=== PATIENT | male | born 1980 | race African-American/Black ===

== ENCOUNTER 2023-08-28 10:05 | Outpatient (OUT) | payer MEDICAID, SELFPAY ==
--- NOTE | 2023-08-28 10:23 | XR_ITS ---
The [address] [address] Patient Name: DORA HIGH MRN: [id number] date: 1980 Sex: M Assigned Patient Location: [facility] Current Patient Location: [facility] Accession/Order Number: [id number] Exam Date: 08/28/2023 10:32 Report Date: 08/28/2023 10:49 At the request of: ARI KELLER Procedure: XR mandible min 4V EXAM: XR mandible min 4V HISTORY: Z18.10 Retained metal fragments COMPARISON: None TECHNIQUE: 4 views of the mandible were obtained. FINDINGS: Stabilizing plate and screws at the level of the right mandibular ramus and angle. The most proximal stabilizing plate is fractured just distal to the second stabilizing screw at this level, correlate clinically. Stabilizing plate and screws at the mentum of the mandible. No obvious acute bony fracture or dislocation. Mandibular condylar regions appear grossly unremarkable. No obvious opaque foreign body aside from the stabilizing devices. No significant soft tissue swelling. XR/XR mandible min 4V IMPRESSION: Mandible study demonstrates stabilizing plates and screws as described, fractured stabilizing plate as described above, of no certain acute significance. Correlate clinically. No other obvious opaque foreign body identified. Follow-up as needed. Electronically authenticated by: JOANNA FISCHER Date: 08/28/2023 10:49
== END 2023-08-28 10:06 | disposition home or self-care (01) ==
LOC: RAD 10:13
PROVIDERS: Visit Provider Physician Assistant Medical
DX: R51.9 Headache, unspecified (principal); Z18.10 Retained metal fragments, unspecified; G40.409 Other generalized epilepsy and epileptic syndromes, not intractable, without status epilepticus
CPT/HCPCS: 70110

== ENCOUNTER 2023-09-17 09:50 | Outpatient (OUT) | payer MEDICAID, SELFPAY ==
--- NOTE | 2023-09-17 09:54 | CT_ITS ---
The [address] [address] Patient Name: DORA HIGH MRN: [id number] date: 1980 Sex: M Assigned Patient Location: CT Current Patient Location: CT Accession/Order Number: [id number] Exam Date: 09/17/2023 10:00 Report Date: 09/17/2023 10:25 At the request of: BARRIE QUINONEZ Procedure: CT head/brain wo con EXAM: CT head/brain wo con HISTORY: seizure disorder G40.909, Headache R51.9 COMPARISON: None. TECHNIQUE: Axial CT images were obtained of the head without intravenous contrast. Multiplanar reconstructions were performed. FINDINGS: No acute intracranial hemorrhage. No acute loss of tobin/white differentiation. The ventricles and sulci are normal in appearance. The osseous structures are unremarkable. No soft tissue abnormality identified. There is mild mucosal thickening in the ethmoid air cells. CT/CT head/brain wo con IMPRESSION: 1. No acute intracranial abnormality. 2. Mild chronic sinusitis. Electronically authenticated by: JERONIMO AZUL Date: 09/17/2023 10:25
== END 2023-09-17 09:51 | disposition home or self-care (01) ==
LOC: CT 09:50
PROVIDERS: Visit Provider Psychiatry & Neurology Neurology
DX: G40.909 Epilepsy, unspecified, not intractable, without status epilepticus (principal); R51.9 Headache, unspecified
CPT/HCPCS: 70450

== ENCOUNTER 2023-12-21 14:21 | Outpatient (OUT) | payer MEDICAID, SELFPAY ==
--- NOTE | 2023-12-21 16:21 | P.CN_ITS ---
Consult Note: HPI Data of Consult Patient: new to practice Consult date: 12/21/23 Requesting Physician: Gaby Huerta MD Primary Care Provider: Non-Staff Physician, Consult Narrative Reason for consult: right foot and ankle pain Narrative: 43yom who presents for evaluation. worsening right foot and ankle pain after injury last year. underwent orif, but has persistent burning, swelling, color change, temperature change, sensitivity in right foot. can barely put socks or shoes on. uses gabapentin, but does not provide significant relief. imaging does not show any acute pathology. cc:: CC: Gaby Huerta MD Review of Systems ROS Status of ROS 10 or more systems reviewed and unremark able except as noted in history and below Exam Narrative Exam Narrative: Psych-alert and oriented x 3.? Attentive and appropriate, constitutionally normal, displays normal mood and affect per situation.? There are no obvious deficits in memory, reasoning, or intellect. Examination of the right lower extremity extremity reveals notable hyperpathia and allodynia.? Notable atrophy and diffuse weakness present in the extremity.? There is notable shiny skin with hair loss and abnormal hair growth denoting trophic changes presently.? Asymmetric color and temperature changes are present which denotes sudomotor changes.? Decreased range of motion and strength is noted in the extremity.? Coordination remains intact.? Gait remains antalgic Assessment and Plan Assessment and Plan (1) Complex regional pain syndrome i of right lower limb: Plan 43yom who presents for evaluation. failed conservative measures, including pt and home exercises >6 weeks. given symptoms and injury history, prudent to attempt right lumbar sympathetic nerve block x2 with ivcs. he is in agreement. meds reviewed. will discontinue gabapentin and trial lyrica 200mg tid. uds obtained. follow up after procedure.
== END 2023-12-21 14:22 | disposition home or self-care (01) ==
LOC: PM 14:22
PROVIDERS: Visit Provider Anesthesiology
DX: G90.521 Complex regional pain syndrome I of right lower limb (principal)
CPT/HCPCS: G0463

== ENCOUNTER 2024-01-04 06:16 | Day surgery (SDC) | payer MEDICAID, SELFPAY ==
--- OUTSIDE RECORDS SUMMARY | 2024-01-04 06:19 | XMS_ITS | CCD ---
Author Organization [facility] Care Team Providers Care Technical Expert Name Role Phone HODAN Lind Attending Provider NO FAMILY, PHYSICIAN Primary Care Unavailable Maico Lind Attending Unavailable Maico Lind Admitting Unavailable Mason ICING MAKER-INSIDE TECHNICAL SALES REPRESENTATIVE, Caio Primary Care Provider JAY JAY CROWE Referring Unavailable MASON, CAIO Primary Care Unavailable JAY JAY CROWE Attending Unavailable MASON, CAIO Referring Unavailable MASON, CAIO Primary Care Unavailable MASON, CAIO Attending Unavailable MASON, CAIO Referring Unavailable MASON, CAIO Primary Care Unavailable MASON, CAIO Referring Unavailable MASON, CAIO Primary Care Unavailable MASON, CAIO Primary Care Unavailable CHERYL PEREZ Attending Unavailable MASON, CAIO Primary Care Unavailable KATLYN LEZAMA Attending Unavailable KATLYN LEZAMA Referring Unavailable MASON, CAIO Primary Care Unavailable Gaby Huerta MD Attending Unavailable MANSI LEE Attending Unavailable Allergies Allergy Classification Reported Allergen(s) Allergy Type Date of Onset Reaction(s) Facility (5 sources) 1-octacosanol; Translations: [OCTACOSANOL] Drug Allergy 03-18-2023 [facility] (5 sources) house dust allergenic extract; Translations: [HOUSE DUST] Drug Allergy 04-05-2023 [facility] Medications Current Medications Medication Drug Class(es) Dates Sig (Normalized) Sig (Original) acetaminophen 500 mg oral tablet (2 sources) Start: 05-19-2023 take 2 tablets by mouth every eight hours acetaminophen (TYLENOL EXTRA STRENGTH) 500 mg tablet Indications: Closed displaced trimalleolar fracture of right ankle, sequela Take 2 tablets (1,000 mg total) by mouth every 8 (eight) hours. 90 tablet 1 05/19/2023 Active acetaminophen 325 mg / oxyCODONE hydrochloride 10 mg oral tablet (3 sources) Opioid Agonist Start: 11-23-2023 End: 12-07-2023 oxyCODONE-acetamino phen (PERCOCET) 10-325 mg per tablet Indications: Viral syndrome Take 1 tablet by mouth every 6 (six) hours as needed for pain for up to 14 days. Max Daily Amount: 4 tablets 56 tablet 0 11/23/2023 12/07/2023 Active Start: 11-14-2023 End: 11-23-2023 oxyCODONE-acetaminophen (PER COCET) 10-325 mg per tablet Indications: Viral syndrome Take 1 tablet by mouth every 4 (four) hours as needed for pain for up to 6 doses. Max Daily Amount: 6 tablets 6 tablet 0 11/14/2023 11/23/2023 Discontinued (Reorder) Start: 07-01-2023 oxyCODONE-acet aminophen (PERCOCET) 5-325 mg per tablet amLODIPine 10 mg oral tablet (3 sources) Dihydropyridine Calcium Channel Brooks Start: 11-23-2023 take 1 tablet by mouth in the morning amLODIPine (NORVASC) 10 mg tablet Take 1 tablet (10 mg total) by mouth in the morning. 30 tablet 2 11/23/2023 Active Start: 07-03-2023 End: 11-23-2023 amLODIPine (NORVASC) 5 mg ta blet aspirin 81 mg delayed release oral tablet (3 sources) Platelet Aggregation Inhibitor, Nonsteroidal Anti-inflammatory Drug Start: 05-19-2023 End: 11-23-2023 take 1 tablet by mouth in the morning, then take 1 tablet by mouth at bedtime aspirin 81 mg Indications: Closed displaced trimalleolar fracture of right ankle, sequela Take 1 tablet (81 mg total) by mouth in the morning and 1 tablet (81 mg total) before bedtime. 60 tablet 0 11/23/2023 Active bisacodyl 10 mg rectal suppository (1 source) Stimulant Laxative bisacodyL (DULCOLAX, BISACODYL,) 10 mg suppository Insert 1 suppository (10 mg total) into the rectum in the morning. 0 Active blood pressure monitor (BLOOD PRESSURE KIT) kit (1 source) Start: 11-23-2023 blood pressure monitor (BLOOD PRESSURE KIT) kit Indications: Primary hypertension 1 Device by miscellaneous route in the morning. 1 each 0 11/23/2023 Active calcium carbonate 500 mg chewable tablet (1 source) calcium carbonat e (TUMS) 200 mg elemental (500 mg) chewable tablet Chew 1 tablet (200 mg total) and swallow in the morning. 0 Active calcium-minerals- [id number] 200 mg calcium- 200 unit tablet (3 sources) Start: 11-23-2023 take 1 tablet by mouth in the morning [id number]-[id number]-Y 5-R0-gkpyozg 200 mg calcium- 200 unit tablet Take 1 tablet by mouth in the morning and 1 tablet before bedtime. 60 tablet 1 11/23/2023 Active End: 11-23-2023 kycvgrz-prohhlsf-P9-K2-silic on 200 mg calcium- 200 unit tablet Take by mouth. 0 11/23/2023 Discontinued (Reorder) calcium-minerals -E3-X1-iebwnbg 200 mg calcium- 200 unit tablet Take by mouth. 0 Active docusate sodium 100 mg oral capsule (1 source) Start: 11-23-2023 take 1 capsule by mouth in the morning, then take 1 capsule by mouth at bedtime docusate sodium (COLACE) 100 mg capsule Take 1 capsule (100 mg total) by mouth in the morning and 1 capsule (100 mg total) before bedtime. 60 capsule 2 11/23/2023 Active DULoxetine 60 mg delayed release oral capsule (2 sources) Serotonin and Norepinephrine Reuptake Inhibitor Start: 11-23-2023 take 1 capsule by mouth once daily at bedtime DULoxetine (CYMBALTA) 60 mg capsule Take 1 capsule (60 mg total) by mouth once daily at bedtime. 30 capsule 2 11/23/2023 Active Start: 10-03-2023 End: 11-23-2023 DULoxetine (CYMBALTA) 30 mg capsule ergocalciferol 1.25 mg oral capsule (3 sources) Provitamin D2 Compound Start: 11-23-2023 End: 01-12-2024 take 1 capsule by mouth every week VITAMIN D2 1,250 mcg (50,000 unit) capsule Take 1 capsule (50,000 Units total) by mouth once a week for 8 doses. 8 capsule 0 11/23/2023 01/12/2024 Active Start: 08-02-2023 End: 11-23-2023 VITAMIN D2 1,250 mcg (50,000 unit) capsule famotidine 20 mg oral tablet (1 source) Histamine-2 Receptor Antagonist Start: 11-23-2023 take 1 tablet by mouth in the morning, then take 1 tablet by mouth at bedtime famotidine (PEPCID) 20 mg tablet Take 1 tablet (20 mg total) by mouth in the morning and 1 tablet (20 mg total) before bedtime. 60 tablet 2 11/23/2023 Active fluticasone propionate 0.05 mg/actuat metered dose nasal spray (2 sources) Corticosteroid Start: 07-14-2023 fluticasone propionate (FLONASE) 50 mcg/actuation nasal spray gabapentin 800 mg oral tablet (3 sources) Anti-epileptic Agent Start: 05-28-2023 End: 11-23-2023 take 1 tablet by mouth once daily gabapentin (NEURONTIN) 800 mg tablet Indications: Closed displaced trimalleolar fracture of right ankle, sequela , Bimalleolar ankle fracture, right, sequela , Uncontrolled pain Take 1 tablet (800 mg total) by mouth nightly. 30 tablet 0 11/23/2023 Active ibuprofen 800 mg oral tablet (3 sources) Nonsteroidal Anti-inflammatory Drug Start: 11-23-2023 take 1 tablet by mouth every eight hours as needed for pain ibuprofen (MOTRIN) 800 mg tablet Take 1 tablet (800 mg total) by mouth every 8 (eight) hours as needed for pain. 90 tablet 2 11/23/2023 Active End: 11-23-2023 take 1 tablet by mouth every six hours as needed for pain ibuprofen (MOTRIN) 800 mg tablet Take 1 tablet (800 mg total) by mouth every 6 (six) hours as needed for pain. 0 11/23/2023 Discontinued (Reorder) magnesium hydroxide 80 mg/ml oral suspension (1 source) take 30 mL by mouth in the morning magnesium hydroxide 400 mg/5 mL suspension Take 30 mL by mouth in the morning. 0 Active methocarbamol 500 mg oral tablet (3 sources) Muscle Relaxant Start: 3 End: 4 take 1 tablet by mouth three times daily as needed for muscle spasms methocarbamoL (ROBAXIN) 500 mg tablet Take 1 tablet (500 mg total) by mouth 3 (three) times a day as needed for muscle spasms. 90 tablet 0 11/23/2023 Active naloxone hydrochloride 40 mg/ml nasal spray (1 source) Opioid Antagonist Start: 4 naloxone (NARCAN) 4 mg/actuation spray,non-aerosol nasal spray Administer 1 spray (4 mg total) into alternating nostrils as needed for opioid reversal. 0 11/14/2023 Active omega 3-vfb-idj-fish oil (Fish OiL) 300-1,000 mg capsule (3 sources) Start: 4 take 1 tablet by mouth in the morning omega 1-zoe-lbz-fish oil (Fish OiL) 300-1,000 mg capsule Take 1 tablet by mouth in the morning and 1 tablet before bedtime. 60 each 2 11/23/2023 Active End: 11-23-2023 omega 9-pre-pwd-fish oil (Fi sh OiL) 300-1,000 mg capsule Take by mouth. 0 11/23/2023 Discontinued (Reorder) omega 3-dha-epa- fish oil (Fish OiL) 300-1,000 mg capsule Take by mouth. 0 Active ondansetron 4 mg disintegrating oral tablet (2 sources) Serotonin-3 Receptor Antagonist Start: 11-14-2023 End: 11-23-2023 take 1 tablet by mouth every eight hours as needed for nausea ondansetron ODT (ZOFRAN ODT) 4 mg disintegrating tablet Dissolve 1 tablet (4 mg total) on tongue every 8 (eight) hours as needed for nausea. 20 tablet 0 11/23/2023 Active phenytoin sodium 100 mg extended release oral capsule (3 sources) Anti-epileptic Agent Start: 07-09-2023 End: 12-23-2023 take 2 capsules by mouth in the morning, then take 2 capsules by mouth at bedtime phenytoin (DILANTIN) 100 mg ER capsule Take 2 capsules (200 mg total) by mouth in the morning and 2 capsules (200 mg total) before bedtime. Do all this for 30 days. 120 capsule 2 11/23/2023 12/23/2023 Active polyethylene glycol 3350 40112 mg powder for oral solution (2 sources) Osmotic Laxative polyethylene gl ycol (GLYCOLAX) 17 gram packet Take 17 g by mouth in the morning. 0 Active propranolol hydrochloride 10 mg oral tablet (2 sources) beta-Adrenergic Brooks Start: 08-13-2023 End: 12-23-2023 take 1 tablet by mouth in the morning, then take 1 tablet by mouth at bedtime propranoloL (INDERAL) 10 mg tablet Take 1 tablet (10 mg total) by mouth in the morning and 1 tablet (10 mg total) before bedtime. Do all this for 30 days. 60 tablet 2 11/23/2023 12/23/2023 Active Completed/Discontinued Medications Medication Drug Class(es) Dates Sig (Normalized) Sig (Original) OXcarbazepine 300 mg oral tablet (2 sources) Anti-epileptic Agent Start: 08-05-2023 End: 11-23-2023 OXcarbazepine (TRILEPTAL) 300 mg tablet oxyCODONE hydrochloride 5 mg oral tablet (2 sources) Opioid Agonist Start: 05-28-2023 End: 11-23-2023 take 1 tablet by mouth every eight hours as needed for pain oxyCODONE (ROXICODONE) 5 mg immediate release tablet Indications: Closed displaced trimalleolar fracture of right ankle, sequela Take 1 tablet (5 mg total) by mouth every 8 (eight) hours as needed for pain. Max Daily Amount: 15 mg 21 tablet 0 05/28/2023 11/23/2023 Discontinued (Therapy completed) sodium phosphate, dibasic 59.3 mg/ml / sodium phosphate, monobasic 161 mg/ml enema (2 sources) End: 11-23-2023 sodium phosphates (FLEET PEDIATRIC) 9.5-3.5 gram/59 mL enema Insert into the rectum once. 0 11/23/2023 Discontinued (Therapy completed) Problems Active Problems Problem Classification Problem Date Documented Date Episodic/Chronic Epilepsy; convulsions (3 sources) Generalized idiopathic epilepsy and epileptic syndromes, not intractable, without status epilepticus; Translations: [Generalized convulsive epilepsy, without mention of intractable epilepsy] Onset: 07-22-2023 07-22-2023 Chronic Epilepsy; convulsions (3 sources) Seizure; Translations: [Unspecified convulsions] Onset: 05-28-2023 05-28-2023 Episodic Essential hypertension (5 sources) Essential hypertension; Translations: [Essential (primary) hypertension] Onset: 05-28-2023 05-28-2023 Chronic Fracture of lower limb (8 sources) Bimalleolar fracture of ankle ; Translations: [Displaced bimalleolar fracture of right lower leg, sequela] Onset: 04-27-2023 10-12-2023 Episodic Headache; including migraine (2 sources) Headache Onset: 11-14-2023 Episodic Nausea and vomiting (1 source) Nausea Onset: 12-07-2023 Episodic Noninfectious gastroenteritis (1 source) Noninfective gastroenteritis and colitis, unspecified; Translations: [Noninfective gastroenteritis and colitis, unspecified] Onset: 12-07-2023 Episodic Other nervous system disorders (1 source) Other chronic pain; Translations: [Other chronic pain] Onset: 11-23-2023 Chronic Other non-traumatic joint disorders (1 source) Pain in right ankle and joints of right foot; Translations: [Pain in right ankle and joints of right foot] Onset: 11-23-2023 Episodic Other non-traumatic joint disorders (1 source) Pain in left ankle and joints of left foot; Translations: [Pain in left ankle and joints of left foot] Onset: 11-23-2023 Episodic Other non-traumatic joint disorders (1 source) Ankle pain; Translations: [Pain in right ankle and joints of right foot] 11-23-2023 Episodic Other non-traumatic joint disorders (1 source) Chronic ankle pain; Translations: [Pain in right ankle and joints of right foot] 11-23-2023 Episodic Other upper respiratory disease (1 source) Nasal congestion Onset: 12-07-2023 Episodic Residual codes; unclassified (1 source) Pain, unspecified; Translations: [Pain, unspecified] Onset: 11-23-2023 Episodic Residual codes; unclassified (1 source) Uncontrolled pain; Translations: [Pain, unspecified] 11-23-2023 Episodic Unclassified (1 source) Other residential (current) drug therapy; Translations: [Other residential (current) drug therapy] Onset: 08-05-2023 Unclassified (1 source) Establish Care Onset: 10-15-2023 Viral infection (3 sources) Viral infection, unspecified; Translations: [Viral disease] Onset: 11-14-2023 11-23-2023 Episodic Past or Other Problems Problem Classification Problem Date Documented Da te Episodic/Chronic E Codes: Fall (2 sources) Fall; Translations: [Unspecified fall, initial encounter] Onset: 04-26-2023 04-26-2023 Episodic Mood disorders (2 sources) Mood disorders Onset: 05-28-2023 05-28-2023 Results Test Name Value Interpretation Reference Range Facil ity SARS/FLU A+B/RSV by NAAT/Mol ecularon 12-07-2023 SARS/FLU A+B/RSV by NAAT/Molecular FLU A PCR Negative (qualifier value) FLU B PCR Negative (qualifier value) RSV by PCR Negative (qualifier value) SARS CoV 2 Not detected (qualifier value) NOTE The Xpert Xpress SARS-CoV-2/Flu/RSV Plus test is a rapid, multiplexed real-time RT-PCR test intended for the simultaneous qualitative detection and differentiation of SARS-CoV-2, influenza A, influenza B and respiratory syncytial virus (RSV) viral RNA from individuals suspected of respiratory viral infection consistent with COVID-19 by their healthcare provider. This test has not been validated in asymptomatic patients. The Xpert Xpress SARS-CoV-2 test is intended for use by qualified and trained operators who are performing tests using either [employer] or [employer] systems and is limited to laboratories that meet the CLIA requirements to perform high and moderate complexity tests. The Xpert Xpress SARS-CoV-2/Flu/RSV Plus is only for use under the Food and Drug Administration's Emergency Use Authorization. Results are for the simultaneous detection and differentiation of SARS-CoV-2, influenza A, influenza B and RSV nucleic acids in clinical specimens. SARS-CoV-2, influenza A, influenza B and RSV RNA identified by this test are generally detectable in upper respiratory samples during the acute phase of infection. Positive results are indicative of the presence of the identified virus, but do not rule out bacterial infection or co-infection with other pathogens not detected by this test. Clinical correlation with patient history and other diagnostic information is necessary to determine patient infection status. The agent detected may not be the definite cause of disease. Negative results do not preclude SARS-CoV-2, influenza A, influenza B and RSV infection and should not be used as the sole basis for treatment or other patient management decisions. Negative results must be combined with clinical observations, patient history and epidemiological information. An Invalid result may occur with specimen-associated inhibition unable to be resolved with specimen repeat. Fact Sheet for Healthcare Providers: https://www.fda.gov/m edia/925773/download Fact Sheet for Patients: https://www.fda.gov/m edia/119152/download Normal [facility] Comment on above: Performed By: #### C OVFLR #### [facility] ([id number]) [address] [place] [address] [id number] XR FOOT RT MIN 3 VWSon 12-06 XR FOOT RT MIN 3 VWS XR FOOT RT MIN 3 VWS HISTORY: Pain and swelling COMPARISON: Right foot x-rays 04/26/2023 FINDINGS: Multiple views of the right foot were obtained. Interval tibial and fibular ORIF with intact hardware. Osseous structures are intact with no gross malalignment. Mild degenerative changes involving the midfoot. No significant soft tissue swelling or radiodense soft tissue foreign body. IMPRESSION: * No acute abnormality. Finalized by Maverick Allen MD on 12/07/2023 10:41 AM Normal [facility] CBC AND AUTO DIFFon 11-14-19 24 ABSOLUTE BASOPHIL 0.0 X10E9/L Normal 0.0-0.2 [facility] Comment on above: Performed By: #### C BCA, CMP #### [facility] ([id number]) [address] [place] [address] [id number] ABSOLUTE NEUTROPHIL 3.5 X10E9/L Normal 1.5-6.6 [facility] Comment on above: Performed By: #### C BCA, CMP #### [facility] ([id number]) [address] [place] [address] 21561 Basophils/100 WBC (Bld) 0.3 % Normal [facility] Comment on above: Performed By: #### C BCA, CMP #### [facility] ([id number]) [address] [place] [address] [phone] Eosinophils (Bld) [#/Vol] 0.6 10*3/uL High 0.0-0.4 [facility] Comment on above: Performed By: #### C BCA, CMP #### [facility] ([id number]) [address] [place] [address] 28743 Eosinophils/100 WBC (Bld) 8.2 % Normal [facility] Comment on above: Performed By: #### C BCA, CMP #### [facility] ([id number]) [address] [place] [address] [phone] Erythrocyte distribution width (RBC) [Ratio] 15.2 % High 11.5-15.0 [facility] Comment on above: Performed By: #### C REBEL, CMP #### [facility] ([id number]) [address] [place] [address] 24033 Hematocrit (Bld) [Volume fraction] 42.1 % Normal 39-49 [facility] Comment on above: Performed By: #### C REBEL, CMP #### [facility] ([id number]) [address] [place] [address] [phone] Hemoglobin (Bld) [Mass/Vol] 14.2 g/dL Normal 13.0-17.0 [facility] Comment on above: Performed By: #### C REBEL, CMP #### [facility] ([id number]) [address] [place] [address] 58590 Lymphocytes (Bld) [#/Vol] 2.5 10*3/uL Normal 1.0-3.5 [facility] Comment on above: Performed By: #### C REBEL, CMP #### [facility] ([id number]) [address] [place] [address] 39118 Lymphocytes/100 WBC (Bld) 34.6 % Normal [facility] Comment on above: Performed By: #### C BCA, CMP #### [facility] ([id number]) [address] [place] [address] [id number] MCH (RBC) [Entitic mass] 28.9 pg Normal 27-34 [facility] Comment on above: Performed By: #### C REBEL, CMP #### [facility] ([id number]) [address] [place] [address] 94062 MCHC (RBC) [Mass/Vol] 33.8 g/dL Normal 32-36 [facility] Comment on above: Performed By: #### C REBEL, CMP #### [facility] ([id number]) [address] [place] [address] 85988 MCV (RBC) [Entitic vol] 85 fL Normal 80-100 [facility] Comment on above: Performed By: #### C REBEL, CMP #### [facility] ([id number]) [address] [place] [address] 12677 Monocytes (Bld) [#/Vol] 0.7 10*3/uL Normal 0-0.9 [facility] Comment on above: Performed By: #### C REBEL, CMP #### [facility] ([id number]) [address] [place] [address] 68780 Monocytes/100 WBC (Bld) 9.6 % Normal [facility] Comment on above: Performed By: #### C REBEL, CMP #### [facility] ([id number]) [address] [place] [address] 03674 Neutrophils/100 WBC (Bld) 47.3 % Normal [facility] Comment on above: Performed By: #### C BCA, CMP #### [facility] ([id number]) [address] [place] [address] [phone] Platelet mean volume (Bld) [Entitic vol] 8.2 fL Normal 7-12 [facility] Comment on above: Performed By: #### C BCA, CMP #### [facility] ([id number]) [address] [place] [address] [phone] Platelets (Bld) [#/Vol] 326 10*3/uL Normal 150-450 [facility] Comment on above: Performed By: #### C BCA, CMP #### [facility] ([id number]) [address] [place] [address] 66480 RBC COUNT 4.93 X10E12/L Normal 4.10-5.70 [facility] Comment on above: Performed By: #### C BCA, CMP #### [facility] ([id number]) [address] [place] [address] 75565 WBC (Bld) [#/Vol] 7.3 10*3/uL Normal 4.0-11.0 [facility] Comment on above: Performed By: #### C BCA, CMP #### [facility] ([id number]) [address] [place] [address] [phone] COMPREHENSIVE METABOLIC PANE Thai 11-14-2023 Albumin [Mass/Vol] 4.3 g/dL Normal 3.2-5.3 [facility] Comment on above: Performed By: #### C BCA, CMP #### [facility] ([id number]) [address] [place] [address] [phone] ALP [Catalytic activity/Vol] 78 U/L Normal 39-130 [facility] Comment on above: Performed By: #### C BCA, CMP #### [facility] ([id number]) [address] [place] [address] [phone] ALT [Catalytic activity/Vol] 42 U/L High 0-40 [facility] Comment on above: Performed By: #### C BCA, CMP #### [facility] ([id number]) [address] [place] [address] 13622 Anion gap [Moles/Vol] 8 mmol/L Normal 5-15 [facility] Comment on above: Performed By: #### C BCA, CMP #### [facility] ([id number]) [address] [place] [address] [phone] AST [Catalytic activity/Vol] 25 U/L Normal 0-41 [facility] Comment on above: Performed By: #### C BCA, CMP #### [facility] ([id number]) [address] [place] [address] 66777 Bilirubin [Mass/Vol] 0.5 mg/dL Normal 0.3-1.2 [facility] Comment on above: Performed By: #### C BCA, CMP #### [facility] ([id number]) [address] [place] [address] [phone] Calcium [Mass/Vol] 8.5 mg/dL Normal 8.5-10.5 [facility] Comment on above: Performed By: #### C BCA, CMP #### [facility] ([id number]) [address] [place] [address] 61521 Chloride [Moles/Vol] 105 mmol/L Normal 98-109 [facility] Comment on above: Performed By: #### C BCA, CMP #### [facility] ([id number]) [address] [place] [address] 85571 CO2 [Moles/Vol] 26 mmol/L Normal 22-32 [facility] Comment on above: Performed By: #### C BCA, CMP #### [facility] ([id number]) [address] [place] [address] [id number] Creatinine [Mass/Vol] 0.88 mg/dL Normal 0.70-1.20 [facility] Comment on above: Result Comment: METH OD TRACEABLE TO IDMS STANDARD Performed By: #### C BCA, CMP #### [facility] ([id number]) [address] [place] [address] [phone] eGFR (CKD-EPI) NON-RACE DEPENDENT >90 Normal >59 [facility] Comment on above: Result Comment: Reported eGFR is based on the CKD-EPI 2020 equation that does not use a race coefficient. Performed By: #### C BCA, CMP #### [facility] ([id number]) [address] [place] [address] 54522 Glucose [Mass/Vol] 114 mg/dL High 65-99 [facility] Comment on above: Performed By: #### C BCA, CMP #### [facility] ([id number]) [address] [place] [address] 51261 Potassium [Moles/Vol] 4.3 mmol/L Normal 3.5-5.0 [facility] Comment on above: Performed By: #### C BCA, CMP #### [facility] [facility] ([id number]) [address] [place] [id number] Protein [Mass/Vol] 7.7 g/dL Normal 6.0-8.0 [facility] Comment on above: Performed By: #### C BCA, CMP #### [facility] ([id number]) [address] [place] [address] Sodium [Moles/Vol] 139 mmol/L Normal 134-146 [facility] Comment on above: Performed By: #### C BCA, CMP #### [facility] ([id number]) [address] [place] [address] Urea nitrogen [Mass/Vol] 9 mg/dL Normal 5-23 [facility] Comment on above: Performed By: #### C BCA, CMP #### [facility] ([id number]) [address] [place] [address] SARS/FLU A+B/RSV by NAAT/Mol ecularon 11-14-2023 SARS/FLU A+B/RSV by NAAT/Molecular FLU A PCR Negative (qualifier value) FLU B PCR Negative (qualifier value) RSV by PCR Negative (qualifier value) SARS CoV 2 Not detected (qualifier value) NOTE The Xpert Xpress SARS-CoV-2/Flu/RSV Plus test is a rapid, multiplexed real-time RT-PCR test intended for the simultaneous qualitative detection and differentiation of SARS-CoV-2, influenza A, influenza B and respiratory syncytial virus (RSV) viral RNA from individuals suspected of respiratory viral infection consistent with COVID-19 by their healthcare provider. This test has not been validated in asymptomatic patients. The Xpert Xpress SARS-CoV-2 test is intended for use by qualified and trained operators who are performing tests using either Fast[employer] or [employer] systems and is limited to laboratories that meet the CLIA requirements to perform high and moderate complexity tests. The Xpert Xpress SARS-CoV-2/Flu/RSV Plus is only for use under the Food and Drug Administration's Emergency Use Authorization. Results are for the simultaneous detection and differentiation of SARS-CoV-2, influenza A, influenza B and RSV nucleic acids in clinical specimens. SARS-CoV-2, influenza A, influenza B and RSV RNA identified by this test are generally detectable in upper respiratory samples during the acute phase of infection. Positive results are indicative of the presence of the identified virus, but do not rule out bacterial infection or co-infection with other pathogens not detected by this test. Clinical correlation with patient history and other diagnostic information is necessary to determine patient infection status. The agent detected may not be the definite cause of disease. Negative results do not preclude SARS-CoV-2, influenza A, influenza B and RSV infection and should not be used as the sole basis for treatment or other patient management decisions. Negative results must be combined with clinical observations, patient history and epidemiological information. An Invalid result may occur with specimen-associated inhibition unable to be resolved with specimen repeat. Fact Sheet for Healthcare Providers: https://www.fda.gov/m edia/196101/download Fact Sheet for Patients: https://www.fda.gov/m edia/921030/download Normal [facility] Comment on above: Performed By: #### C OVFLR #### [facility] ([id number]) [address] [place] [address] RENE KESHAWN RAMOSjeffrey 2023 BILIRUBIN RACHEL Negative Normal NEG [facility] Comment on above: Performed By: #### N UM #### [facility] ([id number]) [address] [place] [address] [place] [address] BLOOD/HGB RACHEL Negative Normal NEG [facility] Comment on above: Performed By: #### N UM #### [facility] ([id number]) [address] [place] [address] [place] [address] GLUCOSE RACHEL Negative Normal NEG [facility] Comment on above: Performed By: #### N UM #### [facility] ([id number]) [address] [place] [address] [place] [address] KETONES RACHEL Negative Normal NEG [facility] Comment on above: Performed By: #### N UM #### [facility] ([id number]) [address] [place] [address] LEUKOCYTE ESTERASE RACHEL Negative Normal NEG [facility] Comment on above: Performed By: #### N UM #### [facility] ([id number]) [address] [place] [address] [place] [address] NITRITE RACHEL Negative Normal NEG [facility] Comment on above: Performed By: #### N UM #### [facility] ([id number]) [address] [place] [address] [place] [address] PH RACHEL 8.5 Normal 5.0-8.5 [facility] Comment on above: Performed By: #### N UM #### [facility] ([id number]) [address] [place] [address] [place] [address] PROTEIN RACHEL Negative Normal NEG [facility] Comment on above: Performed By: #### N UM #### [facility] ([id number]) [address] [place] [address] [place] [address] SPECIFIC GRAVITY RACHEL 1.020 Normal 1.003-1.035 [facility] Comment on above: Performed By: #### N UM #### [facility] ([id number]) [address] [place] [address] [place] [address] UROBILINOGEN RACHEL 0.2 eu/dL Normal <1.1 [facility] Comment on above: Performed By: #### N #### [facility] ([id number]) [address] [place] [address] XR ANKLE RT MIN 3 VWSon 02-0 XR ANKLE RT MIN 3 VWS XR ANKLE RT MIN 3 VWS Comparison August 10 XR ANKLE RT MIN 3 VWS Bimalleolar ankle fracture, right, sequela Impression: 1. Stable appearance of fracture and transfixing hardware. Stable positioning and alignment. Finalized by Ridge Bill MD on 10/16/2023 7:11 AM Normal [facility] Phenytoin (Dilantin)on 08-05 Phenytoin [Mass/Vol] 23.2 ug/mL High 10.0-20.0 [facility] Comment on above: Result Comment: Last dose: - PERFORMED BY: [place] [address] PATHOLOGIST MANAGER OF PLANNING NICOLE BRADFORD M.D. Performed By: #### P KAROL #### [address] Phenytoin [Mass/volume] in S lion or PlasmaOrdered By: Maico Lind on 08-05-2023 Phenytoin [Mass/Vol] 23.2 ug/mL 10.0-20.0 [facility] Comment on above: Last dose: - Vital Signs Date Time Vital Sign Value Performing Clinician Facility 11-23-2023 09:120400 Body height 172.7 cm Caio Mason [employer] [facility] 11-23-2023 09:12-0400 Body mass index (BMI) [Ratio] 26.22 kg/m2 Caio Mason [employer] [facility] 11-23-2023 09:12-0400 Body temperature 98.49 [degF] Caio Mason [employer] Work Phone: [facility] 11-23-2023 09:12-0400 Body weight 78.2 kg Caio Mason [employer] MA[employer] TECHNICAL SALES REPRESENTATIVE Work Phone: [facility] 11-23-2023 09:12-0400 Diastolic blood pressure 74 mm[Hg] Caio Mason [employer] TECHNICAL SALES REPRESENTATIVE Work Phone: [facility] 11-23-2023 09:12-0400 Heart rate 92 /min Caio Mason [employer] TECHNICAL SALES REPRESENTATIVE Work Phone: [facility] 11-23-2023 09:12-0400 SaO2% (BldA) [Mass fraction] 98 % Caioliliam Mason [employer]INS[employer] TECHNICAL SALES REPRESENTATIVE Work Phone: [facility] 11-23-2023 09:12-0400 Systolic blood pressure 124 mm[Hg] Caio Mason [employer] TECHNICAL SALES REPRESENTATIVE Work Phone: [facility] Encounters Encounter Date Encounter Type Care Provider Facility Start: 12-31-2023 End: 12-31-2023 ambulatory MANSI LEE Not Available Start: 12-21-2023 End: 12-22-2023 ambulatory Gaby Huerta MD Facility:[facility] Start: 12-07-2023 End: 12-08-2023 Emergency department patient visit [facility] Start: 11-23-2023 End: 11-23-2023 ambulatory [facility] Start: 11-23-2023 End: 11-23-2023 Office outpatient visit 15 minutes Caioliliam Mason [employer] TECHNICAL SALES REPRESENTATIVE Work Phone: [facility] Comment on above: Primary hypertension (Primary Dx); Closed displaced trimalleolar fracture of right ankle, sequela; Bimalleolar ankle fracture, right, sequela; Uncontrolled pain; Chronic pain of both ankles; Chronic pain of right ankle; Viral syndrome; Seizure ([facility]); Epilepsy, generalized, 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[facility]) Start: 11-14-2023 End: 11-14-2023 Emergency department patient visit [facility] Start: 10-20-2023 ambulatory [facility] Start: 10-15-2023 End: 10-16-2023 ambulatory JAY JAY SEBASTIEN [facility] Start: 10-12-2023 Orders Only Clarita barger RN [facility] Comment on above: Bimalleolar ankle fr acture, right, sequela (Primary Dx) Start: 08-05-2023 End: 08-05-2023 ambulatory PHYSICIAN NO FAMILY Facility:[facility] Start: 08-05-2023 End: 08-05-2023 ambulatory II Maico Lind Work Phone: [facility] Work Phone: Start: 08-05-2023 End: 08-05-2023 Departed Referred II Maico Lind Work Phone: [facility] [place] Work Phone: Procedures Date Procedure Procedure Detail Performing Clinician Start: 10-15-2023 Follow-up visit Follow-up JAY JAY BECKER Start: 05-28-2023 Adult depression scr eening assessment Clarita Layne RN Plan of Treatment Date Care Activity Detail Author Start: 11-22-2024 Adult BMI Screening Adult BMI Screen ing [facility] Start: 11-22-2024 Tobacco Screening Tobacco Screening [facility] Start: 08-10-2024 Adult BMI Screening Adult BMI Screen ing [facility] Start: 08-10-2024 Tobacco Screening Tobacco Screening [facility] Start: 05-28-2024 Depression Screening Depression Scre ening [facility] Start: 02-29-2024 End: 02-29-2024 Patient encounter procedure 02/29/2024 2:45 PM EDT Office Visit [facility] [address] [place] [address] Mason Caio, ICING MAKER[employer]INSIDE TECHNICAL SALES REPRESENTATIVE [address] [place], [place] [address] [facility] Start: 02-11-2024 End: 02-11-2024 Patient encounter procedure 02/11/2024 2:00 PM EDT Office Visit [facility] [address] [place] [phone] Jay Jay Crowe MD [address] [place], [place] [id number] [facility] Start: 10-23-2023 End: 10-23-2023 Patient encounter procedure 10/23/2023 3:00 PM EST Office Visit [facility] [address] [place] [address] Patric Marie, PAB[employer] [address] [place] [address] [facility] Start: 10-15-2023 End: 10-15-2023 Patient encounter procedure [facility] Start: 10-12-2023 End: 10-12-2024 XR Ankle - right 3 Views X-ray ankle right minimum 3 views Imaging Routine Bimalleolar ankle fracture, right, sequela Expected: 10/12/2023, Expires: 10/12/2024 [facility] Work Phone: Comment on above: Expected: 10/12/2023 , Expires: 10/12/2024 Start: 05-08-2023 Influenza vaccination Influenza Vacc ine [facility] Start: 12-04-1998 DTaP,Tdap and Td Vaccines (1 - Tdap) DTaP,Tdap and Td Vaccines (1 - Tdap) [facility] Start: 12-04-1997 Adult BMI Follow Up Plan Adult BMI Follow Up Plan [facility] Start: 1979 Tobacco Counseling Tobacco Counselin trip [facility] Payers Date Payer Category Payer Self-pay 2023 Private Health Insurance [id number] 2023 Unknown [id number] 2022 Medicaid [id number] 1999 Medicaid [id number] 1979 Unknown [id number] 2.16.8 [id number] 1979 Unknown [id number] 2.16.8 [id number] 1979 Unknown [id number] 2.16.8 [id number] 1979 Unknown [id number] 2.16.8 [id number] 1979 Unknown [id number] 2.16.8 [id number] 1979 Unknown [id number] 2.16.8 [id number] 1979 Unknown [id number] 2.16.8 [id number] 1979 Unknown [id number] 2.16. [id number] 1979 Unknown [id number] 2.16.84 [id number] Unknown [id number] 2.16.8 [id number] Social History Date Type Detail Facility Tobacco smoking stat [facility] Unknown if ever smoked [facility] Work Phone: Start: 1980 Sex Assigned At Male F [facility] Start: 04-05-2023 [facility] History of tobacco use Cigarette Smoker [facility] Start: 04-05-2023 End: 11-13-2023 Cigarettes smoked current (pack per day) - Reported 0.5 [facility] Start: 04-05-2023 Tobacco use and exposure Smokeless tobacco non-user [facility] Start: 08-10-2023 End: 11-23-2023 Alcohol intake Current drinker of alcohol (finding) [facility] Start: 08-10-2023 End: 11-13-2023 Tobacco use panel [facility] Adolescent depressio n screening assessment 4 [facility] Start: 04-26-2023 Alcohol Comment occ [facility] Start: 1980 Sex Assigned At Not on file [facility] Medical Equipment Procedure Code Equipment Code Equipment Origin al Text Equipment Identifier Dates Clamp Xtrnfx Lg Opn Adj Mr Conditional Ns - [id number] Start: 04-27-2023 Pin Fx 225mm 5mm Stnm Ss Cntr Thrd Ns Lg Xtrnfxtr - [id number] Start: 04-27-2023 Plate Bn 86mm Cn tr 4 Hl Lcp Cmbn Fib Rt Dist Lat Ss Ns Rpl Special [id number] - [id number] Start: 05-05-2023 Danny Xtrnfx 250mm 11mm Cfbr Mr Conditional Ns - [id number] Start: 04-27-2023 Screw Xtrnfx 125 mm 4mm Schnz Hip Cndyl Ss Slf Drl Mr - [id number] Start: 04-27-2023 Screw Bn 60mm 4m m 5mm 1.35mm St Slf Drl Cnn Sm Hex Ss L/T - [id number] Start: 05-05-2023 Goals Date Patient Goal Desired Activity /State Personal health goal Comment on above: Formatting of this n ote might be different from the original. Evaluation of progress towards goal: Patient plans for a safe discharge. History of Present illness Narrative 11-23-2023 [facility] - 11/23/2023 8:45 AM EDT Note Date & Type Note Facility 11-23-2023 History of Present illness Narrative Subjective Patient ID: Curt Kebede is a 42 y.o. male. HPI Devendra presents to the office for follow up. I last saw him last on 05/28/2023 after hospital admission for seizure activity and having ankle fracture. I was able to help him get into a care home for recovery, [facility]. He recently was discharged from the care home to home he states about 2-3 weeks ago and is now residing with his brother. HTN Blood pressure increases later in the day and after activities or physical therapy. He said NH increased his Amlodipine from 5 mg to 10 mg. And BP is now more controlled. BP is 124/74 today. Complains of episodes of headache when BP is high or sometimes with seizure episodes. He would like BP cuff ordered. Nausea He is continuing to have nausea but headache is resolved. Nausea is random and happens when lying down or after eating. It may be related to GERD or constipation. Refill GERD medication, and sent zofran PRN. Encouraged to take medication with food. Colace ordered. Neuro Seizures are well controlled with medications. Has had 2-3 light seizures episodes in the last 6 months. Has upcoming neurology appointment in December. Followed with neurology- Patric Marie 07/22/2023 and recommends a as follows Continue Phenytoin 100 mg ER, 2 capsules (200 mg) BID Consider a change to either Topiramate or Lamotrigine in the future Obtain recent EEG report; consider ordering a 3-5 day LTME. Was completed at [facility]. - this was completed, but hasn't heard results. Patient stated EEG was completed for 5 days but is not aware of the results. Patient stated he was getting weekly Dilantin blood work. Ortho Following with Dr. Jay Jay Crowe- ortho- last seen 10/15/2023 Weight bearing as tolerated. He may wean off of assistive devices and out of the Cam orthotic boot as able. However, Devendra continues to have constant pain. Ankle swells up intermittently and has cramps. Pain worsens with standing up or walking. Boots has been discontinued. Patient can not run and has a limp in foot. 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 He wants to go back to work but concerned he may not be able to tolerate. Pain is a constant 10 out of 10. Sharp pain is constant. Has tried tylenol and ibuprofen, but not helpful. Also reports intermittent numbness to the bottom of feet. He would like to continue to pain medication as he cannot get relieve from pain. He states he cannot even cover up his foot with a blanket d/t pain. The following portions of the patient's history were reviewed and updated as appropriate: allergies, current medications, past family history, past medical history, past social history, past surgical history, problem list, and medication reconciliation was completed including current medication and post discharge medication. Review of Systems Constitutional: Negative for chills, diaphoresis, fatigue, fever and unexpected weight change. HENT: Negative. Respiratory: Positive for shortness of breath. Negative for chest tightness. Occasional shortness of breath Cardiovascular: Positive for leg swelling. Negative for chest pain and palpitations. Gastrointestinal: Positive for abdominal pain and constipation. Negative for blood in stool. Occasional abdominal pain. Musculoskeletal: Positive for arthralgias, gait problem and myalgias. Bilateral ankle pain but right ankle is worse and constant. Skin: Negative. Neurological: Positive for seizures, weakness and headaches. Psychiatric/Behavioral: Negative for self-injury and suicidal ideas. Objective Physical Exam Vitals and nursing note reviewed. Constitutional: General: He is not in acute distress. Appearance: Normal appearance. He is well-developed. He is not ill-appearing. HENT: Head: Normocephalic and atraumatic. Right Ear: External ear normal. Left Ear: External ear normal. Eyes: Extraocular Movements: Extraocular movements intact. Conjunctiva/sclera: Conjunctivae normal. Pupils: Pupils are equal, round, and reactive to light. Neck: Vascular: No carotid bruit. Cardiovascular: Rate and Rhythm: Normal rate and regular rhythm. Pulses: Normal pulses. Posterior tibial pulses are 2+ on the right side and 2+ on the left side. Heart sounds: Normal heart sounds. No murmur heard. Pulmonary: Effort: Pulmonary effort is normal. No respiratory distress. Breath sounds: Normal breath sounds. No stridor. No wheezing, rhonchi or rales. Chest: Chest wall: No tenderness. Abdominal: Palpations: Abdomen is soft. Musculoskeletal: General: Normal range of motion. Cervical back: Normal range of motion and neck supple. Right lower leg: No edema. Left lower leg: No edema. Skin: General: Skin is warm and dry. Capillary Refill: Capillary refill takes less than 2 seconds. Findings: No erythema or rash. Neurological: General: No focal deficit present. Mental Status: He is alert and oriented to person, place, and time. Psychiatric: Mood and Affect: Mood normal. Behavior: Behavior normal. Assessment/Plan Sign release of records to obtain from [facility] and from [facility], for testing results. Reports he was told he has high cholesterol, I do not see the labs, await previous notes. Education provided for low fat low cholesterol diet. Recheck vitamin D at next visit as he is currently taking supplement. Keep FU with specialties, Ortho and Neuro. Encouraged to take ibuprofen TID PRN, and we can continue with [place]. Encouraged to rest, ice, and elevate. Referral placed to [facility] as he continues to have uncontrolled pain. Discussed possibly increasing gabapentin. 3 month FU for HTN, seizures, and pain. The OARRS/MAPPS database was reviewed today and found to be appropriate. No indication of medication diversion, or non compliance. Devendra was seen today for hypertension. Diagnoses and all orders for this visit: Primary hypertension - blood pressure monitor (BLOOD PRESSURE KIT) kit; 1 Device by miscellaneous route in the morning. Closed displaced trimalleolar fracture of right ankle, sequela - aspirin 81 mg; Take 1 tablet (81 mg total) by mouth in the morning and 1 tablet (81 mg total) before bedtime. - gabapentin (NEURONTIN) 800 mg tablet; Take 1 tablet (800 mg total) by mouth nightly. Bimalleolar ankle fracture, right, sequela - gabapentin (NEURONTIN) 800 mg tablet; Take 1 tablet (800 mg total) by mouth nightly. Uncontrolled pain - gabapentin (NEURONTIN) 800 mg tablet; Take 1 tablet (800 mg total) by mouth nightly. - Ambulatory referral to Pain Management (Non-[facility]); Future Chronic pain of both ankles - Ambulatory referral to Pain Management (Non[facility]); Future Chronic pain of right ankle - Ambulatory referral to Pain Management (Non-[facility]); Future Viral syndrome - oxyCODONE-acetaminophen (PERCOCET) 10-325 mg per tablet; Take 1 tablet by mouth every 6 (six) hours as needed for pain for up to 14 days. Max Daily Amount: 4 tablets Seizure (CMS-HCC) Epilepsy, generalized, 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CMS-HCC) Other orders - amLODIPine (NORVASC) 10 mg tablet; Take 1 tablet (10 mg total) by mouth in the morning. - ondansetron ODT (ZOFRAN ODT) 4 mg disintegrating tablet; Dissolve 1 tablet (4 mg total) on tongue every 8 (eight) hours as needed for nausea. - omega 6-dti-lws-fish oil (Fish OiL) 300-1,000 mg capsule; Take 1 tablet by mouth in the morning and 1 tablet before bedtime. - tbedmrw-xdaoegkc-C6-K2-silicon 200 mg calcium- 200 unit tablet; Take 1 tablet by mouth in the morning and 1 tablet before bedtime. - ibuprofen (MOTRIN) 800 mg tablet; Take 1 tablet (800 mg total) by mouth every 8 (eight) hours as needed for pain. - phenytoin (DILANTIN) 100 mg ER capsule; Take 2 capsules (200 mg total) by mouth in the morning and 2 capsules (200 mg total) before bedtime. Do all this for 30 days. - propranoloL (INDERAL) 10 mg tablet; Take 1 tablet (10 mg total) by mouth in the morning and 1 tablet (10 mg total) before bedtime. Do all this for 30 days. - VITAMIN D2 1,250 mcg (50,000 unit) capsule; Take 1 capsule (50,000 Units total) by mouth once a week for 8 doses. - methocarbamoL (ROBAXIN) 500 mg tablet; Take 1 tablet (500 mg total) by mouth 3 (three) times a day as needed for muscle spasms. - DULoxetine (CYMBALTA) 60 mg capsule; Take 1 capsule (60 mg total) by mouth once daily at bedtime. - docusate sodium (COLACE) 100 mg capsule; Take 1 capsule (100 mg total) by mouth in the morning and 1 capsule (100 mg total) before bedtime. - famotidine (PEPCID) 20 mg tablet; Take 1 tablet (20 mg total) by mouth in the morning and 1 tablet (20 mg total) before bedtime. [facility] 11/23/23 1049 documented in this encounter [facility] Evaluation note Note Date & Type Note Facility Evaluation note No assessment information [facility] Work Phone: Evaluation note Note Date & Type Note Facility Evaluation note Diagnosis Bimalleolar ankle fracture, right, sequela- Primary documented in this encounter [facility] Evaluation note Note Date & Type Note Facility Evaluation note Diagnosis Primary hypertension- Primary Unspecified essential hypertension Closed displaced trimalleolar fracture of right ankle, sequela Bimalleolar ankle fracture, right, sequela Uncontrolled pain Chronic pain of both ankles Chronic pain of right ankle Viral syndrome Unspecified viral infection, in conditions classified elsewhere and of unspecified site Seizure ([facility]) Other convulsions Epilepsy, generalized, 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 documented in this encounter [facility] Instructions Note Date & Type Note Facility Instructions Not on filedocumented in this en counter [facility] Instructions Attachments Note Date & Type Note Facility Instructions The following attachments cannot be sent through Care Everywhere.Low Cholesterol, Saturated Fat, and Trans Fat Diet (Pashto)documented in this encounter [facility] Reason for referral (narrative) Consultation (Routine) - Pending Review Note Date & Type Note Facility Reason for referral (narrati ve) Specialty Diagnoses / Procedures Referred By Ja griffin Referred To Contact Pain Medicine Diagnoses Uncontrolled pain Chronic pain of both ankles Chronic pain of right ankle Caio Mason APRN-CNP [address] [place] [address], [facility] [place] [address] Jermaine Yap MD [address] [place] [address] Referral ID Status Reason Start Date Expiration Date V isits Requested Visits Authorized [id number] Pending Review 11/23/2023 11/22/2024 1 1 * Medication Prior Authorization - Pending Review Specialty Diagnoses / Procedures Referred By Ja griffin Referred To Contact Caio Mason APRN-CNP [address] [place] [address], [facility] [place] [address] Referral ID Status Reason Start Date Expiration Date V isits Requested Visits Authorized [id number] Pending Review 1 1 [facility] Summary Purpose Family History No Family History Records FoundNo Family History Records FoundNo Family History Records FoundNo Family History Records FoundNo Family History Records FoundNo Family History Records Found Advance Directives No Advanced Directives Records FoundLatest Code Status on File Code Status Date Activated Date Inactivated Comments Full Code 04/26/2023 1:34 PM 05/12/2023 6:57 PM Latest Code Status on File Code Status Date Activated Date Inactivated Comments Full Code 04/26/2023 1:34 PM 05/12/2023 6:57 PM Additional Source Comments Care Teams (unrecognized sec tion and content) Team Status: Inactive Member Role Status Dates Maico Lind II MD Attending Provider Active Technical Expert Relationship Specialty Start Date End Date Caio Mason APRN-CNP PCP - General Nurse Practitioner 05/28/23 Technical Expert Relationship Specialty Start Date End Date Caio Mason APRN-CNP PCP - General Nurse Practitioner 05/28/23 Goals (unrecognized section and content) Goals may be documented in a n alternate section (unrecognized sect ion and content) No Status Records FoundNo Status Records FoundNo Status Records FoundNo Status Records FoundNo Status Records FoundNo Status Records Found INFORMATION SOURCE (unrecogn ized section and content) DATE CREATED AUTHOR 08/19/2023 [facility] DATE CREATED AUTHOR AUTHOR'S ORGANIZ ATION 10/19/2023 [facility] DATE CREATED AUTHOR AUTHOR'S ORGANIZ ATION 11/23/2023 [facility] DATE CREATED AUTHOR AUTHOR'S ORGANIZ ATION 12/08/2023 [facility] DATE CREATED AUTHOR AUTHOR'S ORGANIZ ATION 12/26/2023 [facility] DATE CREATED AUTHOR AUTHOR'S AMADA RODRIGUEZ 01/02/2024 [facility] Reason for Visit (unrecogniz ed section and content) Reason Comments Hypertension FOR RECORDS PERTAINING TO PATIENTS WHO ARE OR HAVE BEEN ENROLLED IN A CHEMICAL DEPENDENCY/SUBSTANCEABUSE PROGRAM, SOME INFORMATION MAY BE OMITTED. This clinical summary was aggregated from multiple sources. Caution should be exercised in using it in the provision of clinical care. This summary normalizes information from multiple sources, and as a consequence, information in this document may materially change the coding, format and clinical context of patient data. In addition, data may be omitted in some cases. CLINICAL DECISIONS SHOULD BE BASED ON THE PRIMARY CLINICAL RECORDS. [facility] [employer] [facility]. provides no warranty or guarantee of the accuracy or completeness of information in this document.
[2024-01-04 06:55] VITALS: BP 131/87; PULSE 78; TEMP 36.3; O2SAT 100
[2024-01-04] MEDS: 0.9 % SODIUM CHLORIDE 500 ML 50 ML IV (07:30)
--- NOTE | 2024-01-04 07:54 | W.PM.PROCNOT ---
Date of procedure: 01/04/24 Pre-op diagnosis: Right lower extremity complex regional pain syndrome type I Post-op diagnosis: same as pre-op Procedure: Procedure: Right lumbar sympathetic nerve block Medications: Bupivacaine 0.25% 4cc, normal saline 0.9% 4cc, kenalog 80mg The patient was seen and examined in the preoperative holding area.? Informed consent was obtained and placed on the chart.? Patient was brought to the medical procedure unit and placed in the prone position where a timeout was completed verifying the correct patient, procedure site, position, and planned special equipment using sterile aseptic technique.? Under direct fluoroscopic visualization a 25-gauge Quincke tipped spinal needle was advanced to the right anterolateral aspect of the L3 vertebral body where Omnipaque dye was injected to show adequate spread.? There was no evidence of vascular or neurologic uptake.? The above-mentioned injectate was then placed in five 2 mL aliquots preceded by negative aspiration. The needle was removed and the surgery site was covered. The same procedure, with the same steps, was then completed on the opposite side. Patient was taken to the postprocedural recovery area and monitored for an appropriate length of time before found suitable for discharge in the accompaniment of a responsible adult. Anesthesia: MAC Surgeon: Gaby Huerta Pathology: none sent Condition: stable Disposition: no change
[2024-01-04 07:57] VITALS: BP 125/82; PULSE 78; TEMP 36.7; O2SAT 100
[2024-01-04] MEDS: BUPIVACAINE HCL 0.25% PF 25 MG/10 ML VIAL 4 ML INJ (07:58)
[2024-01-04] MEDS: IOHEXOL 240 MG/ML - 10 ML VIAL 24 MG INJ (07:58)
[2024-01-04] MEDS: LIDOCAINE HCL 2% PF 100 MG/5 ML VIAL 1.5 ML INJ (07:59)
[2024-01-04] MEDS: TRIAMCINOLONE ACETONIDE 40 MG/ML VIAL INJ (07:59)
[2024-01-04] MEDS: 0.9 % SODIUM CHLORIDE 10 ML SYRINGE - SALINE FLUSH 5 ML INJ (07:59)
[2024-01-04 08:01] VITALS: BP 128/75; PULSE 81; TEMP 36.7; O2SAT 100
== END 2024-01-04 08:27 | disposition home or self-care (01) ==
LOC: SURGOUT 06:17
PROVIDERS: Visit Provider Anesthesiology
PROC: (CPT 1992; principal; 2024-01-04 07:40)
DX: G90.521 Complex regional pain syndrome I of right lower limb (principal)
CPT/HCPCS: 64520; J2704; Q9966

== ENCOUNTER 2024-01-18 06:22 | Day surgery (SDC) | payer MEDICAID, SELFPAY ==
--- OUTSIDE RECORDS SUMMARY | 2024-01-18 06:24 | XMS_ITS | CCD ---
Author Organization [facility] Care Team Providers Care Can Technician Name Role Phone HODAN Lind Attending Provider NO FAMILY, PHYSICIAN Primary Care Unavailable Maico Lind Attending Unavailable Maico Lidn Admitting Unavailable Mason WILDLIFE BIOLOGY INTERNSHIP-BIOPHYSICS TEACHER, Caio Primary Care Provider JAY JAY CROWE [...] Referring Unavailable MASON, CAIO Primary Care Unavailable MANSI LEE Attending Unavailable Bradley BURNS, Gaby Lamar Attending Unavailable Bradley BURNS, Gaby Lamar Attending Unavailable Allergies Allergy Classification Reported Allergen(s) Allergy Type Date of Onset Reaction(s) Facility (5 sources) 1-octacosanol; Translations: [OCTACOSANOL] Drug Allergy 03-18-2023 [facility] (5 sources) house dust allergenic extract; Translations: [HOUSE DUST] Drug Allergy 04-05-2023 [facility] Medications Current Medications Medication Drug Class(es) Dates [...] swallow in the morning. 0 Active calcium-minerals- T0-T3-rmdesuj 200 mg calcium- 200 unit tablet (3 sources) Start: 11-23-2023 take 1 tablet by mouth in the morning wzvpqqd-hvsjbloa-K 5-M7-sapeekq 200 mg calcium- 200 unit tablet Take 1 tablet by mouth in the morning and 1 tablet before bedtime. 60 tablet 1 11/23/2023 Active End: 11-23-2023 bbylrwx-hrnqmggr-Z4-K2-silic on 200 mg calcium- 200 unit tablet Take by mouth. 0 11/23/2023 Discontinued (Reorder) calcium-minerals -S8-O2-fqxaynq 200 mg calcium- 200 unit tablet Take [...] nasal spray (1 source) Opioid Antagonist Start: naloxone (NARCAN) 4 mg/actuation spray,non-aerosol nasal spray Administer 1 spray (4 mg total) into alternating nostrils as needed for opioid reversal. 0 11/14/2023 Active omega 8-qbo-grb-fish oil (Fish OiL) 300-1,000 mg capsule (3 sources) Start: 4 take 1 tablet by mouth in the morning omega 2-wjt-qtt-fish oil (Fish OiL) 300-1,000 mg capsule Take 1 tablet by mouth in the morning and 1 tablet before bedtime. 60 each 2 11/23/2023 Active End: 11-23-2023 omega 8-rhr-zba-fish oil (Fi sh OiL) 300-1,000 mg capsule [...] 2 11/23/2023 12/23/2023 Active polyethylene glycol 3350 43343 mg powder for oral solution (2 sources) [...] hypertension; Translations: [Essential (primary) hypertension] Onset: 05-28-2023 3 Chronic Fracture of lower limb (8 sources) [...] unspecified] 11-23-2023 Episodic Unclassified (1 source) Other intermediate manager (current) drug therapy; Translations: [Other longterm (current) drug therapy] Onset: 08-05-2023 Unclassified (1 [...] operators who are performing tests using either [employer] or [employer] systems and is limited to laboratories that [...] repeat. Fact Sheet for Healthcare Providers: https://www.fda.gov/m edia/160582/download Fact Sheet for Patients: https://www.fda.gov/m edia/805181/download Normal [facility] Comment on above: Performed By: #### C OVFLR #### [facility] ([id number]) [address] [place] [address] 52910 XR FOOT RT MIN 3 VWSon 12-06 [...] Allen MD on 12/07/2023 10:41 AM Normal [facility] CBC AND AUTO DIFFon 11-14-19 24 ABSOLUTE BASOPHIL 0.0 X10E9/L Normal 0.0-0.2 [facility] Comment on above: Performed By: #### C BCA, CMP #### [facility] ([id number]) [address] [place] [address] 02197 ABSOLUTE NEUTROPHIL 3.5 X10E9/L Normal 1.5-6.6 [facility] Comment on above: Performed By: #### C BCA, CMP #### [facility] ([id number]) [address] [place] [address] 00157 Basophils/100 WBC (Bld) 0.3 % Normal [facility] Comment on above: Performed By: #### C BCA, CMP #### [facility] ([id number]) [address] [place] [address] 35850 Eosinophils (Bld) [#/Vol] 0.6 10*3/uL High 0.0-0.4 [facility] Comment on above: Performed By: #### C BCA, CMP #### [facility] ([id number]) [address] [place] [address] 18783 Eosinophils/100 WBC (Bld) 8.2 % Normal [facility] Comment on above: Performed By: #### C BCA, CMP #### [facility] ([id number]) [address] [place] [address] 16504 Erythrocyte distribution width (RBC) [Ratio] 15.2 % High 11.5-15.0 [facility] Comment on above: Performed By: #### C REBEL, CMP #### [facility] ([id number]) [address] [place] [address] 99151 Hematocrit (Bld) [Volume fraction] 42.1 % Normal 39-49 [facility] Comment on above: Performed By: #### C REBEL, CMP #### [facility] ([id number]) [address] [place] [address] 88372 Hemoglobin (Bld) [Mass/Vol] 14.2 g/dL Normal 13.0-17.0 [facility] Comment on above: Performed By: #### C BCA, CMP #### [facility] ([id number]) [address] [place] [address] 34243 Lymphocytes (Bld) [#/Vol] 2.5 10*3/uL Normal 1.0-3.5 [facility] Comment on above: Performed By: #### C BCA, CMP #### [facility] ([id number]) [address] [place] [address] 46606 Lymphocytes/100 WBC (Bld) 34.6 % Normal [facility] Comment on above: Performed By: #### C BCA, CMP #### [facility] ([id number]) [address] [place] [address] 19671 MCH (RBC) [Entitic mass] 28.9 pg Normal 27-34 [facility] Comment on above: Performed By: #### C REBEL, CMP #### [facility] ([id number]) [address] [place] [address] 17915 MCHC (RBC) [Mass/Vol] 33.8 g/dL Normal 32-36 [facility] Comment on above: Performed By: #### C REBEL, CMP #### [facility] ([id number]) [address] [place] [address] 62846 MCV (RBC) [Entitic vol] 85 fL Normal 80-100 [facility] Comment on above: Performed By: #### C REBEL, CMP #### [facility] ([id number]) [address] [place] [address] 48638 Monocytes (Bld) [#/Vol] 0.7 10*3/uL Normal 0-0.9 [facility] Comment on above: Performed By: #### C REBEL, CMP #### [facility] ([id number]) [address] [place] [address] 68192 Monocytes/100 WBC (Bld) 9.6 % Normal [facility] Comment on above: Performed By: #### C REBEL, CMP #### [facility] ([id number]) [address] [place] [address] 21704 Neutrophils/100 WBC (Bld) 47.3 % Normal [facility] Comment on above: Performed By: #### C BCA, CMP #### [facility] ([id number]) [address] [place] [address] 57636 Platelet mean volume (Bld) [Entitic vol] 8.2 fL Normal 7-12 [facility] Comment on above: Performed By: #### C BCA, CMP #### [facility] ([id number]) [address] [place] [address] 01342 Platelets (Bld) [#/Vol] 326 10*3/uL Normal 150-450 [facility] Comment on above: Performed By: #### C BCA, CMP #### [facility] ([id number]) [address] [place] [address] 35167 RBC COUNT 4.93 X10E12/L Normal 4.10-5.70 [facility] Comment on above: Performed By: #### C BCA, CMP #### [facility] ([id number]) [address] [place] [address] 64448 WBC (Bld) [#/Vol] 7.3 10*3/uL Normal 4.0-11.0 [facility] Comment on above: Performed By: #### C BCA, CMP #### [facility] ([id number]) [address] [place] [address] 10297 COMPREHENSIVE METABOLIC PANE Thai 11-14-2023 Albumin [Mass/Vol] 4.3 g/dL Normal 3.2-5.3 [facility] Comment on above: Performed By: #### C BCA, CMP #### [facility] ([id number]) [address] [place] [address] 33287 ALP [Catalytic activity/Vol] 78 U/L Normal 39-130 [facility] Comment on above: Performed By: #### C BCA, CMP #### [facility] ([id number]) [address] [place] [address] 64980 ALT [Catalytic activity/Vol] 42 U/L High 0-40 [facility] Comment on above: Performed By: #### C BCA, CMP #### [facility] ([id number]) [address] [place] [address] 15196 Anion gap [Moles/Vol] 8 mmol/L Normal 5-15 [facility] Comment on above: Performed By: #### C BCA, CMP #### [facility] ([id number]) [address] [place] [address] 92178 AST [Catalytic activity/Vol] 25 U/L Normal 0-41 [facility] Comment on above: Performed By: #### C BCA, CMP #### [facility] ([id number]) [address] [place] [address] 15823 Bilirubin [Mass/Vol] 0.5 mg/dL Normal 0.3-1.2 [facility] Comment on above: Performed By: #### C BCA, CMP #### [facility] ([id number]) [address] [place] [address] 55271 Calcium [Mass/Vol] 8.5 mg/dL Normal 8.5-10.5 [facility] Comment on above: Performed By: #### C BCA, CMP #### [facility] ([id number]) [address] [place] [address] 85344 Chloride [Moles/Vol] 105 mmol/L Normal 98-109 [facility] Comment on above: Performed By: #### C BCA, CMP #### [facility] ([id number]) [address] [place] [address] 47833 CO2 [Moles/Vol] 26 mmol/L Normal 22-32 [facility] Comment on above: Performed By: #### C BCA, CMP #### [facility] ([id number]) [address] [place] [address] 00656 Creatinine [Mass/Vol] 0.88 mg/dL Normal 0.70-1.20 [facility] Comment on above: Result Comment: METH OD TRACEABLE TO IDMS STANDARD Performed By: #### C BCA, CMP #### [facility] ([id number]) [address] [place] [address] 10639 eGFR (CKD-EPI) NON-RACE DEPENDENT >90 Normal >59 [facility] Comment on above: Result Comment: Reported eGFR is based on the CKD-EPI 2020 equation that does not use a race coefficient. Performed By: #### C REBEL, CMP #### [facility] ([id number]) [address] [place] [address] 80612 Glucose [Mass/Vol] 114 mg/dL High 65-99 [facility] Comment on above: Performed By: #### C BCA, CMP #### [facility] ([id number]) [address] [place] [address] 68455 Potassium [Moles/Vol] 4.3 mmol/L Normal 3.5-5.0 [facility] Comment on above: Performed By: #### C REBEL, CMP #### [facility] ([id number]) [address] [place] [address] 47871 Protein [Mass/Vol] 7.7 g/dL Normal 6.0-8.0 [facility] Comment on above: Performed By: #### C BCA, CMP #### [facility] ([id number]) [address] [place] [address] 67681 Sodium [Moles/Vol] 139 mmol/L Normal 134-146 [facility] Comment on above: Performed By: #### C BCA, CMP #### [facility] ([id number]) [address] [place] [address] 59627 Urea nitrogen [Mass/Vol] 9 mg/dL Normal 5-23 [facility] Comment on above: Performed By: #### C BCA, CMP #### [facility] ([id number]) [address] [place] [address] 53954 SARS/FLU A+B/RSV by NAAT/Mol ecularon 11-14-2023 SARS/FLU [...] operators who are performing tests using either [employer] or [employer] systems and is limited to laboratories that [...] repeat. Fact Sheet for Healthcare Providers: https://www.fda.gov/m edia/685259/download Fact Sheet for Patients: https://www.fda.gov/m edia/511063/download Normal [facility] Comment on above: Performed By: #### C OVFLR #### [facility] ([id number]) [address] [place] [address], [place] [address] RENE Thacker 2023 BILIRUBIN RACHEL Negative Normal NEG [facility] Comment on above: Performed By: #### N UM #### [facility] ([id number]) [address] [place] [address], [place] [address] BLOOD/HGB RACHEL Negative Normal NEG [facility] Comment on above: Performed By: #### N UM #### [facility] ([id number]) [address] [place] [address], [place] [address] GLUCOSE RACHEL Negative Normal NEG [facility] Comment on above: Performed By: #### N UM #### [facility] ([id number]) [address] [place] [address], [place] [address] KETONES RACHEL Negative Normal NEG [facility] Comment on above: Performed By: #### N UM #### [facility] ([id number]) [address] [place] [address] [place] [address] LEUKOCYTE ESTERASE RACHEL Negative Normal NEG [facility] Comment on above: Performed By: #### N UM #### [facility] ([id number]) [address] [place] [address], [place] [address] NITRITE RACHEL Negative Normal NEG [facility] Comment on above: Performed By: #### N UM #### [facility] ([id number]) [address] [place] [address], [place] [address] PH RACHEL 8.5 Normal 5.0-8.5 [facility] Comment on above: Performed By: #### N UM #### [facility] ([id number]) [address] [place] [address], [place] [address] PROTEIN RACHEL Negative Normal NEG [facility] Comment on above: Performed By: #### N UM #### [facility] ([id number]) [address] [place] [address], [place] [address] SPECIFIC GRAVITY RACHEL 1.020 Normal 1.003-1.035 [facility] Comment on above: Performed By: #### N UM #### [facility] ([id number]) [address] [facility], [place] [address] UROBILINOGEN RACHEL 0.2 eu/dL Normal <1.1 [facility] Comment on above: Performed By: #### N UM #### [facility] ([id number]) [address] [facility], [place] [address] XR ANKLE RT MIN 3 VWSon XR ANKLE RT MIN 3 VWS XR ANKLE RT MIN 3 VWS Comparison August 10 XR ANKLE RT MIN 3 VWS Bimalleolar ankle fracture, right, sequela Impression: 1. Stable appearance of fracture and transfixing hardware. Stable positioning and alignment. Finalized by Ridge Bill MD on 10/16/2023 7:11 AM Normal [facility] Phenytoin (Dilantin)on 08-05 Phenytoin [Mass/Vol] 23.2 ug/mL High 10.0-20.0 [facility] Comment on above: Result Comment: Last dose: - PERFORMED BY: [place] [address] PATHOLOGIST SALES REPRESENTATIVE ADDING MACHINES NICOLE BRADFORD M.D. Performed By: #### P KAROL #### [address] Phenytoin [Mass/volume] in S lion or PlasmaOrdered By: Maico Lind on 08-05-2023 Phenytoin [Mass/Vol] 23.2 ug/mL 10.0-20.0 [facility] Comment on above: Last dose: - Vital Signs Date Time Vital Sign Value Performing Clinician Facility 11-23-2023 09:12-0400 Body height 172.7 cm Caio BOO Work Phone: [facility] 11-23-2023 09:12-0400 Body mass index (BMI) [Ratio] 26.22 kg/m2 Caio Mason APRN-BIOPHYSICS TEACHER Work Phone: [facility] [employer] [facility] 11-23-2023 09:12-0400 Body temperature 98.49 [degF] Caio Mason WILDLIFE BIOLOGY INTERNSHIP-BIOPHYSICS TEACHER Work Phone: [facility] 11-23-2023 09:12-0400 Body weight 78.2 kg Caio Mason WILDLIFE BIOLOGY INTERNSHIP-BIOPHYSICS TEACHER Work Phone: [facility] 11-23-2023 09:12-0400 Diastolic blood pressure 74 mm[Hg] Caio Mason WILDLIFE BIOLOGY INTERNSHIP-BIOPHYSICS TEACHER Work Phone: [facility] 11-23-2023 09:12-0400 Heart rate 92 /min Caio Mason WILDLIFE BIOLOGY INTERNSHIP-BIOPHYSICS TEACHER Work Phone: [facility] 11-23-2023 09:12-0400 SaO2% (BldA) [Mass fraction] 98 % Caio Rojas WILDLIFE BIOLOGY INTERNSHIP-BIOPHYSICS TEACHER Work Phone: [facility] 11-23-2023 09:12-0400 Systolic blood pressure 124 mm[Hg] Caio Mason WILDLIFE BIOLOGY INTERNSHIP-BIOPHYSICS TEACHER Work Phone: [facility] Encounters Encounter Date Encounter Type Care Provider Facility Start: 01-04-2024 End: 01-05-2024 ambulatory Gaby Huerta MD Facility:[facility] Start: 12-31-2023 End: 12-31-2023 ambulatory MANSI LEE Not Available Start: 12-21-2023 End: 12-22-2023 ambulatory Gaby Huerta MD Facility:[facility] Start: 12-07-2023 End: 12-08-2023 Emergency department patient visit [facility] Start: 11-23-2023 End: 11-23-2023 ambulatory [facility] Start: 11-23-2023 End: 11-23-2023 Office outpatient visit 15 minutes Caio Mason APRN-BIOPHYSICS TEACHER Work Phone: [facility] Comment on above: Primary hypertension (Primary Dx); Closed displaced trimalleolar fracture of right ankle, sequela; Bimalleolar ankle fracture, right, sequela; Uncontrolled pain; Chronic pain of both ankles; Chronic pain of right ankle; Viral syndrome; Seizure (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) Start: 11-14-2023 End: 11-14-2023 Emergency department patient visit [facility] Start: 10-20-2023 ambulatory [facility] Start: 10-15-2023 End: 10-16-2023 ambulatory JAY JAY CROWE [facility] Start: 10-12-2023 Orders Only Clar[facility]ger [facility] Comment on above: Bimalleolar ankle fr acture, right, sequela (Primary Dx) Start: 08-05-2023 End: 08-05-2023 ambulatory PHYSICIAN NO FAMILY Facility:[facility] Start: 08-05-2023 End: 08-05-2023 ambulatory II Maico Lind Work Phone: [facility] Work Phone: Start: 08-05-2023 End: 08-05-2023 Departed Referred II Maico Lind Work Phone: [facility] [place] Work Phone: Procedures Date Procedure Procedure Detail Performing Clinician Start: 10-15-2023 Follow-up visit Follow-up JAY JAY BECKER Start: 05-28-2023 Adult depression scr eening assessment Clarita Layne RN Plan of Treatment Date Care Activity Detail Author Start: 11-22-2024 Adult BMI Screening Adult BMI Screen ing [facility] Start: 11-22-2024 Tobacco Screening Tobacco Screening [facility] [employer] Start: 08-10-2024 Adult BMI Screening Adult BMI Screen ing [facility] [employer] [facility] Start: 08-10-2024 Tobacco Screening Tobacco Screening [facility] Start: 05-28-2024 Depression Screening Depression Scre ening [facility] Start: 02-29-2024 End: 02-29-2024 Patient encounter procedure 02/29/2024 2:45 PM EDT Office Visit [facility] [address] [place] [address] [place] [address] Caio Mason, WILDLIFE BIOLOGY INTERNSHIP-BIOPHYSICS TEACHER [address] [place] [address], [facility] [place] [address] [facility] Start: 02-11-2024 End: 02-11-2024 Patient encounter procedure 02/11/2024 2:00 PM EDT Office Visit [facility] [address] [place] [address] [address] [place] [address] Jay Jay Crowe MD [address] [facility], [address] [place] [address] [facility] Start: 10-23-2023 End: 10-23-2023 Patient encounter procedure 10/23/2023 3:00 PM EST Office Visit [facility] [address] [place] [address] BLD[address] [facility] [place] [address] Patric Marie, MARIO [address] [place] [address] [facility] Start: 10-15-2023 End: 10-15-2023 Patient encounter procedure [facility] Start: 10-12-2023 End: 10-12-2024 XR Ankle - right 3 Views X-ray ankle right minimum 3 views Imaging Routine Bimalleolar ankle fracture, right, sequela Expected: 10/12/2023, Expires: 10/12/2024 [facility] Work Phone: Comment on above: Expected: 10/12/2023 , Expires: 10/12/2024 Start: 05-08-2023 Influenza vaccination Influenza Vacc ine [facility] Start: 12-04-1998 DTaP,Tdap and Td Vaccines (1 - Tdap) DTaP,Tdap and Td Vaccines (1 - Tdap) [facility] Start: 03-30-1998 Adult BMI Follow Up Plan Adult BMI Follow Up Plan [facility] Start: 1979 Tobacco Counseling Tobacco Counselroxanne dominique [employer] [facility] Payers Date Payer Category Payer Self-pay 2023 Private Health Insurance [id number] 2023 Unknown [id number] 2022 Medicaid [id number] 1999 Medicaid [id number] 1979 Unknown [id number] 2.16.8 [id number] 1979 Unknown [id number] 2.16.8 [id number] 1979 Unknown [id number] 2.16.8 [id number] 1979 Unknown [id number] 2.16.8 [id number] 1979 Unknown [id number] 2.16.8 [id number] 1979 Unknown [id number] 2.16.8 [id number] 1979 Unknown [id number] 2.16.8 [id number] 1979 Unknown [id number] 2.16.84 [id number] 1979 Unknown [id number] 2.16. [id number] 1979 Unknown [id number] 2.16. [id number] Unknown [id number] 2.16.8 [id number] Social History Date Type Detail Facility Tobacco smoking stat us NHIS Unknown if ever smoked [facility] Work Phone: Start: 1980 Sex Assigned At Male F [facility] Start: 04-05-2023 Tobacco smoking stat us NHIS Smokes tobacco daily [facility] History of tobacco use Cigarette Smoker P [facility] Start: 04-05-2023 End: 11-13-2023 Cigarettes smoked current (pack per day) - Reported 0.5 [facility] Start: 04-05-2023 Tobacco use and exposure Smokeless tobacco non-user [facility] Start: 08-10-2023 End: 11-23-2023 Alcohol intake Current drinker of alcohol (finding) [facility] Start: 08-10-2023 End: 11-13-2023 Tobacco use panel [facility] Adolescent depressio n screening assessment 4 [facility] Start: 04-26-2023 Alcohol Comment occ [facility] Start: 1980 Sex Assigned At Not on file P [facility] Medical Equipment Procedure Code Equipment Code Equipment Origin al Text Equipment Identifier Dates Clamp Xtrnfx Lg Opn Adj Mr Conditional Ns - [id number] Start: 04-27-2023 Pin Fx 225mm 5mm Stnm Ss Cntr Thrd Ns Lg Xtrnfxtr - [id number] Start: 04-27-2023 Plate Bn 86mm Cn tr 4 Hl Lcp Cmbn Fib Rt Dist Lat Ss Ns Rpl Special [id number] - [id number] Start: 05-05-2023 Danny Xtrnfx 250mm 11mm Cfbr Mr Conditional Ns - [id number] Start: 04-27-2023 Screw Xtrnfx 125 mm 4mm Schnz Hip Cndyl Ss Slf Drl Mr - [id number] Start: 04-27-2023 Screw Bn 60mm 4m m 5mm 1.35mm St Slf Drl Cnn Sm Hex Ss L/T - [id number] Start: 05-05-2023 Goals Date Patient Goal [...] able to help him get into a [facility] for recovery, [place]. He recently was discharged from the [facility] to home he states about 2-3 weeks [...] a 3-5 day LTME. Was completed at [facility]. - this was completed, but hasn't heard [...] Sign release of records to obtain from [facility] [facility] and from [facility], for testing results. Reports he was told he has high cholesterol, I do not see the labs, await previous notes. Education provided for low fat low cholesterol diet. Recheck vitamin D at next visit as he is currently taking supplement. Keep FU with specialties, Ortho and Neuro. Encouraged to take ibuprofen TID PRN, and we can continue with [place]. Encouraged to rest, ice, and elevate. Referral placed to [facility] as he continues to have [...] days. Max Daily Amount: 4 tablets Seizure (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) Other orders - amLODIPine (NORVASC) 10 mg tablet; Take 1 tablet (10 mg total) by mouth in the morning. - ondansetron ODT (ZOFRAN ODT) 4 mg disintegrating tablet; Dissolve 1 tablet (4 mg total) on tongue every 8 (eight) hours as needed for nausea. - omega 6-mzg-ige-fish oil (Fish OiL) 300-1,000 mg capsule; Take 1 tablet by mouth in the morning and 1 tablet before bedtime. - depugtu-qahepbuk-S8-K2-silicon 200 mg calcium- 200 unit tablet; Take [...] Note Facility Evaluation note No assessment information [facility] Work Phone: Evaluation note Note [...] classified elsewhere and of unspecified site Seizure (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 documented in this encounter [facility] Instructions Note Date & Type Note Facility Instructions Not on filedocumented in this en counter [facility] Instructions Attachments Note Date & Type Note Facility Instructions The following attachments cannot be sent through Care Everywhere.Low Cholesterol, Saturated Fat, and Trans Fat Diet ([place])documented in this encounter [facility] Reason for referral (narrative) Consultation (Routine) - Pending Review Note Date & Type Note Facility Reason for referral (narrati ve) Specialty Diagnoses / Procedures Referred By Ja t Referred To Contact Pain Medicine Diagnoses Uncontrolled pain Chronic pain of both ankles Chronic pain of right ankle Caio Mason APRN-CNP [address] [place] [phone] Jermaine Yap MD [address] [place] [address] Referral ID Status Reason Start Date Expiration Date V isits Requested Visits Authorized [id number] Pending Review 11/23/2023 11/22/2024 1 1 * Medication Prior Authorization - Pending Review Specialty Diagnoses / Procedures Referred By Ja griffin Referred To Contact Caio Mason APRN-CNP [address], [place] [address] Referral ID Status Reason Start Date Expiration Date V isits Requested Visits Authorized [id number] Pending Review 1 1 [facility] Summary Purpose Family History No Family History [...] Maico Lind II MD Attending Provider Active Can Technician Relationship Specialty Start Date End Date Caio Mason APRN-CNP PCP - General Nurse Practitioner 05/28/23 Can Technician Relationship Specialty Start Date End Date Caio [...] section and content) DATE CREATED AUTHOR 08/19/2023 [facility] DATE CREATED AUTHOR AUTHOR'S ORGANIZ ATION 10/19/2023 [facility] DATE CREATED AUTHOR AUTHOR'S ORGANIZ ATION 11/23/2023 [facility] DATE CREATED AUTHOR AUTHOR'S ORGANIZ ATION 12/08/2023 [place] DATE CREATED AUTHOR AUTHOR'S ORGANIZ ATION 01/02/2024 [facility] DATE CREATED AUTHOR AUTHOR'S ORGANIZ ATION 01/14/2024 [facility] Reason for Visit (unrecogniz ed section and [...] BE BASED ON THE PRIMARY CLINICAL RECORDS. [facility] [employer] [facility]. provides no warranty or guarantee of the accuracy or completeness of information in this document.
[2024-01-18 07:13] VITALS: BP 127/87; PULSE 70; TEMP 36.6; O2SAT 100
[2024-01-18] MEDS: 0.9 % SODIUM CHLORIDE 500 ML IV (07:39)
[2024-01-18] MEDS: IOHEXOL 240 MG/ML - 10 ML VIAL INJ (08:09)
[2024-01-18] MEDS: TRIAMCINOLONE ACETONIDE 40 MG/ML VIAL INJ (08:09)
[2024-01-18] MEDS: BUPIVACAINE HCL 0.25% PF 25 MG/10 ML VIAL INJ (08:10)
[2024-01-18] MEDS: 0.9 % SODIUM CHLORIDE 10 ML SYRINGE - SALINE FLUSH INJ (08:10)
[2024-01-18] MEDS: LIDOCAINE HCL 2% PF 100 MG/5 ML VIAL INJ (08:11)
--- NOTE | 2024-01-18 08:13 | W.PM.PROCNOT ---
Date of procedure: 01/18/24 Pre-op diagnosis: Right lower extremity CRPS, type 1 Post-op diagnosis: same as pre-op Procedure: Procedure: Right lumbar sympathetic nerve block Medications: Bupivacaine 0.25% 4cc, normal saline 0.9% 4cc, kenalog 80mg The patient was seen and examined in the preoperative holding area.? Informed consent was obtained and placed on the chart.? Patient was brought to the medical procedure unit and placed in the prone position where a timeout was completed verifying the correct patient, procedure site, position, and planned special equipment using sterile aseptic technique.? Under direct fluoroscopic visualization a 25-gauge Quincke tipped spinal needle was advanced to the right anterolateral aspect of the L3 vertebral body where Omnipaque dye was injected to show adequate spread.? There was no evidence of vascular or neurologic uptake.? The above-mentioned injectate was then placed in five 2 mL aliquots preceded by negative aspiration. The needle was removed and the surgery site was covered. The same procedure, with the same steps, was then completed on the opposite side. Patient was taken to the postprocedural recovery area and monitored for an appropriate length of time before found suitable for discharge in the accompaniment of a responsible adult. Anesthesia: MAC Surgeon: Gaby Huerta Pathology: none sent Condition: stable Disposition: no change
[2024-01-18 08:18] VITALS: BP 120/73; PULSE 69; TEMP 36.4; O2SAT 100
[2024-01-18 08:20] VITALS: BP 115/72; PULSE 74; TEMP 36.4; O2SAT 99
== END 2024-01-18 08:42 | disposition home or self-care (01) ==
PROVIDERS: Visit Provider Anesthesiology
PROC: (CPT 1992; principal; 2024-01-18 07:50)
DX: G90.511 Complex regional pain syndrome I of right upper limb (principal)
CPT/HCPCS: 64520; 77002; J2704; Q9966

== ENCOUNTER 2024-01-25 12:58 | Outpatient (OUT) | payer MEDICAID, SELFPAY ==
--- NOTE | 2024-01-25 14:39 | PM.CN ---
Consult Note: HPI Data of Consult Patient: known to practice within the last 3 years Consult date: 01/25/24 Requesting Physician: Gaby Huerta MD Primary Care Provider: Non-Staff Physician, Consult Narrative Reason for consult: right foot and ankle pain Narrative: 43yom who presents for assessment. continues to have significant right foot and ankle pain. current medications are not helping much. difficulty standing, ambulating. denies adverse med side effects. cc:: CC: Gaby Huerta MD Review of Systems ROS Status of ROS 10 or more systems reviewed and unremarkable except as noted in history and below [facility] Medical History (Updated 12/29/23 @ 11:48 by Judy Joe) Epilepsy ?G40.909 - Epilepsy, unspecified, not intractable, without status epilepticus (ICD-10) Smoker ?F17.200 - Nicotine dependence, unspecified, uncomplicated (ICD-10) Hypertension ?I10 - Essential (primary) hypertension (ICD-10) Surgical History History of ankle surgery ?Z98.890 - Other specified postprocedural states (ICD-10) History of mandibular surgery ?Z98.890 - Other specified postprocedural states (ICD-10) Meds Home Medications and Allergies Home Medications ?Medication ?Instructions ?Recorded ?Confirmed ?Type amlodipine 10 mg tablet 10 mg PO DAILY 12/22/23 01/04/24 History duloxetine 60 mg capsule,delayed 60 mg PO DAILY 12/22/23 01/04/24 History release famotidine 20 mg tablet 20 mg PO BID 12/22/23 01/04/24 History meloxicam 15 mg tablet 15 mg PO DAILY 12/22/23 12/22/23 History omega 5-onw-lwk-fish oil 300 1 cap PO BID 12/22/23 01/04/24 History mg-1,000 mg capsule,delayed release (Fish Oil) pregabalin 200 mg capsule (Lyrica) 200 mg PO TID 12/22/23 01/04/24 History propranolol 10 mg tablet 10 mg PO BID 12/22/23 01/04/24 History propranolol 40 mg tablet 20 mg PO BID 12/22/23 01/04/24 History Allergies Allergy/AdvReac Type Severity Reaction Status Date / Time No Known Drug Allergies Allergy Verified 01/04/24 07:32 Exam Narrative Exam Narrative: Psych-alert and oriented x 3.? Attentive and appropriate, constitutionally normal, displays normal mood and affect per situation.? There are no obvious deficits in memory, reasoning, or intellect. Examination of the right extremity reveals notable hyperpathia and allodynia.? Notable atrophy and diffuse weakness present in the extremity.? There is notable shiny skin with hair loss and abnormal hair growth denoting trophic changes presently.? Asymmetric color and temperature changes are present which denotes sudomotor changes.? Decreased range of motion and strength is noted in the extremity.? Coordination remains intact.? Gait remains non-antalgic. Assessment and Plan Assessment and Plan (1) Complex regional pain syndrome i of right lower limb: Plan 43yom who presents for assessment. continues to have significant right foot and ankle pain that prevents him from standing, ambulating. difficulty working because of the pain. pdmp reviewed, consistent results. given persistence of pain, will trial tramadol 50mg tid prn. will also refer to [facility] for consideration of scs vs peripheral nerve stim. he is in agreement. follow up in 3 months.
== END 2024-01-25 12:59 | disposition home or self-care (01) ==
LOC: PM 12:59
PROVIDERS: Visit Provider Anesthesiology
DX: G90.521 Complex regional pain syndrome I of right lower limb (principal)
CPT/HCPCS: G0463